=== PATIENT | male | born 1955 | race Caucasian/White ===

== ENCOUNTER 2018-01-17 10:58 | Day surgery (SDC) | payer OTHER ==
[~2018-01-17 10:58] MED LIST: LIDOCAINE 2% (SDV) 5 ML INJ
[2018-01-17] MEDS ORDERED: FENTAnyl 50 MCG/ML VIAL (12:49)
[2018-01-17] MEDS ORDERED: PROPOFOL 20 ML (13:05)
[2018-01-17] MEDS ORDERED: SUCCINYLCHOLINE CHLORIDE 100 MG/5 ML SYG IV (13:05)
[2018-01-17] MEDS ORDERED: CEFAZOLIN 1 GM INJ (13:05)
[2018-01-17] MEDS ORDERED: SUGAMMADEX SODIUM 200 MG/2 ML VIAL IV (13:05)
[2018-01-17] MEDS ORDERED: ROCURONIUM 50 MG INJ (13:05)
[2018-01-17] MEDS ORDERED: HYDROCODONE/APAP (5/325) TAB PO (13:30)
== END 2018-01-17 15:30 | disposition home or self-care (01) ==
LOC: SDS 10:58
DX: Z46.6 Encounter for fitting and adjustment of urinary device (principal); I10 Essential (primary) hypertension; E11.9 Type 2 diabetes mellitus without complications; E66.9 Obesity, unspecified; Z68.32 Body mass index [BMI] 32.0-32.9, adult
CPT/HCPCS: 52310; 82962